=== PATIENT | female | born 1995 | race Caucasian/White ===

== ENCOUNTER 2020-01-09 22:38 | Emergency (ER) | payer SELFPAY ==
[~2020-01-09] VITALS: Ht 175.3 cm; Wt 76.0 kg
--- NOTE | 2020-01-09 23:45 | NUR ---
PT STATES FEELING VERY FAINT DURING LAB DRAW. HYPOTENSIVE AFTER LABS. PT TO RM FROM [facility]. PT STATES SHE NORMALLY HAS SIMILAR REACTIONS DURING BLOOD DRAWS. PT IS A&OX4. MOVING ALL EXTREMITIES. STATES HX OF DIZZINESS, N/V, WEAKNESS INTERMITTENTLY FOR THE LAST 3-4 DAYS. UPON LAYING IN ROOM, BP 103/65. SINUS SOLOMON ON MONITOR. CALL LIGHT IN REACH. TECH ATTEMPTING IV ACCESS.
[2020-01-09 23:46] LABS: BASOPHILS # (AUTO) 0.03 x10^3/uL (0-0.1); BASOPHILS % (AUTO) 0 % (0-1); EOSINOPHILS # (AUTO) 0.32 x10^3/uL (0-0.4); EOSINOPHILS % (AUTO) 3 % (1-7); LYMPHOCYTES % (AUTO) 13 % (22-44); MD NO; MEAN CORPUSCULAR HEMOGLOBIN 30.7 pg (27.0-34.8); MEAN CORPUSCULAR HGB CONC 33.4 g/dL (32.4-35.8); MEAN CORPUSCULAR VOLUME 91.7 fL (80-100); MEAN PLATELET VOLUME 8.4 fL (7.4-10.4); MONOCYTES # (AUTO) 0.79 x10^3/uL (0.2-0.8); MONOCYTES % (AUTO) 8 % (2-9); NEUTROPHILS # (AUTO) 8.08 x10^3/uL (1.8-6.8); NEUTROPHILS % (AUTO) 76 % (42-75); PLATELET COUNT 211 x10^3/uL (130-400); RED BLOOD COUNT 5.49 x10^6/uL (3.82-5.3); RED CELL DISTRIBUTION WIDTH 12.4 % (9.6-15.2)
[2020-01-09 23:51] LABS: RAPID INFLUENZA A Negative (Negative); RAPID INFLUENZA B Negative (Negative)
[2020-01-09 23:58] LABS: ALBUMIN 4.1 g/dL (3.4-5.0); ANION GAP 7 mmol/L (5-15); CALCIUM 8.9 mg/dL (8.5-10.1); CHLORIDE 109 mmol/L (98-107); CREATININE 0.79 mg/dL (0.55-1.02)
--- NOTE | 2020-01-10 00:09 | NUR ---
ALL TESTS RESULTED. PT IS UP FOR RECHECK AT THIS TIME.
[2020-01-10] MEDS ORDERED: SODIUM CHLORIDE 0.9% 1,000ML IVBOLUS ONE (00:30)
--- NOTE | 2020-01-10 00:32 | NUR ---
DR. STANLEY IN ROOM.
[2020-01-10] MEDS ORDERED: methylPREDNISolone SOD SUCC 125 MG/2 ML ONE (00:46)
--- NOTE | 2020-01-10 00:51 | NUR ---
PT MEDICATED PER [facility].
[2020-01-10] MEDS ORDERED: ALBUTEROL SULFATE 2.5 MG/3 ML NPPB ONE (01:00)
[2020-01-10] MEDS ORDERED: methylPREDNISolone SOD SUCC 125 MG/2 ML IVPush SCH (01:00)
[2020-01-10] MEDS ORDERED: ALBUTEROL/IPRATROPIUM 2.5MG/0.5MG, 3 ML NPPB ONE (01:00)
[2020-01-10 01:37] VITALS: BP 103/70
--- NOTE | 2020-01-10 01:59 | NUR ---
Patient given discharge instructions and they have confirmed that they understand the instructions. Patient ambulatory with steady gait.
== END 2020-01-10 01:56 | disposition home or self-care (01) ==
LOC: ED 01-10
DX: J20.8 Acute bronchitis due to other specified organisms (principal); R00.0 Tachycardia, unspecified; R42 Dizziness and giddiness; F17.200 Nicotine dependence, unspecified, uncomplicated
CPT/HCPCS: 36415; 71045; 80048; 82040; 84703; 85025; 87400; 93005; 94640; 96361; 96365; 99285; J2930; J7030

== ENCOUNTER 2020-01-29 13:34 | Emergency (ER) | payer OTHER ==
[~2020-01-29] VITALS: Ht 175.3 cm; Wt 75.0 kg
--- NOTE | 2020-01-29 13:47 | NUR ---
THIS IS A 24 YO F W/ C/O SOB AND CP X2 WEEKS. PT WAS SEEN AT THIS FACILITY AND DX W/ BRONCHITIS. REPORTS FINISHING STEROIDS AND USING ALBUTEROL INHALER W/ NO RELIEF. PT REPORTS CP IS WORSE W/ INSPIRATION. PT DENIES N/V/D. RESP EVEN AND UNLABORED, NADN. VS STABLE. NADN. PT IS RESTING ON Achieve X W/ CALL LIGHT IN REACH. DENIES FURTHER NEEDS AT THIS TIME.
--- NOTE | 2020-01-29 14:00 | NUR ---
PT INTITIALLY REFUSED TO HAVE LABS DRAWN STATING "I JUST HAD LABS DRAWN 2 WEEKS AGO, WHAT'S THE POINT IF YOU'RE JUST GOING TO SAY NOTHING IS WRONG AND SEND ME HOME?" PT TEARFUL AND ANXIOUS. THIS RN EXPLAINED THE IMPORTANCE OF RUNNING TESTS SO WE MAY PROPERLY TREAT HER. PT AGREED TO LAB WORK.
[2020-01-29 14:38] LABS: ALBUMIN 3.7 g/dL (3.4-5.0); ANION GAP 6 mmol/L (5-15); CALCIUM 8.7 mg/dL (8.5-10.1); CHLORIDE 112 mmol/L (98-107); CREATININE 0.73 mg/dL (0.55-1.02)
[2020-01-29 14:39] VITALS: BP 126/84
[2020-01-29 14:41] LABS: BASOPHILS # (AUTO) 0.03 x10^3/uL (0-0.1); BASOPHILS % (AUTO) 0 % (0-1); EOSINOPHILS # (AUTO) 0.39 x10^3/uL (0-0.4); EOSINOPHILS % (AUTO) 5 % (1-7); LYMPHOCYTES # (AUTO) 1.32 x10^3/uL (1-3.4); LYMPHOCYTES % (AUTO) 18 % (22-44); MD NO; MEAN CORPUSCULAR HEMOGLOBIN 30.8 pg (27.0-34.8); MEAN CORPUSCULAR HGB CONC 34.1 g/dL (32.4-35.8); MEAN CORPUSCULAR VOLUME 90.5 fL (80-100); MEAN PLATELET VOLUME 8.1 fL (7.4-10.4); MONOCYTES % (AUTO) 3 % (2-9); NEUTROPHILS # (AUTO) 5.61 x10^3/uL (1.8-6.8); NEUTROPHILS % (AUTO) 75 % (42-75); PLATELET COUNT 217 x10^3/uL (130-400); RED BLOOD COUNT 5.25 x10^6/uL (3.82-5.3); RED CELL DISTRIBUTION WIDTH 12.3 % (9.6-15.2)
== END 2020-01-29 15:33 | disposition home or self-care (01) ==
LOC: ED 13:53
DX: B34.9 Viral infection, unspecified (principal); J18.9 Pneumonia, unspecified organism; R06.00 Dyspnea, unspecified; F17.210 Nicotine dependence, cigarettes, uncomplicated
CPT/HCPCS: 36415; 71045; 80048; 82040; 83605; 84145; 85025; 99284

== ENCOUNTER → 2021-04-14 | Outpatient (CLI) | payer OTHER | END | disposition home or self-care (01) | LOC: LAB 16:30 | PROVIDERS: ATTEND Family Medicine | DX: Z20.2 Contact with and (suspected) exposure to infections with a predominantly sexual mode of transmission (principal) | CPT/HCPCS: 87491; 87591 ==